=== PATIENT | female | born 1965 | race Caucasian/White ===

== ENCOUNTER 2017-05-20 18:32 | Emergency (ER) | payer BC, MEDICAID ==
[2017-05-20] MEDS ORDERED: ALBUTEROL SULFATE 2.5 MG/0.5 ML VIAL.NEB IH ONE ×2 (18:46→19:13)
[2017-05-20] MEDS ORDERED: NORMAL SALINE 1,000 ML IV ONE ×2 (18:47→20:53)
[2017-05-20 19:17] LABS: Mean Cell Volume 94.8 fl (78-100); Mean Corpuscular Hgb Conc 32.6 g/dl (32-36); Mean Platelet Volume 10.7 fl (6.0-9.5); Neutrophil # 7.4 K/mm3 (1.3-6.0); Neutrophil % 72.5 % (42-75.0); Platelet Count 261 K/mm3 (150-450); Red Blood Count 2.52 M/mm3 (4.2-5.4); Red Cell Distribution Width 14.1 % (11.5-14.0); White Blood Count 10.2 K/mm3 (4.0-10.5)
[2017-05-20 19:23] LABS: Hematocrit 23.9 % (37.0-47.0); Hemoglobin 7.8 gm/dL (12.5-16.0)
[2017-05-20 19:36] LABS: ALT 12 U/L (19-67); AST 11 U/L (0-48); Albumin * 2.4 gm/dl (3.4-5.0); Alkaline Phosphatase * 68 U/L (50-170); Anion Gap 13.1 mmol/L (6.8-13.8); BNP * 435 pg/mL (5-150); BUN/Creatinine Ratio 42.3 (9.0-21.6); Bilirubin, Total 0.3 mg/dL (0.0-1.1); Blood Urea Nitrogen 69 mg/dL (3-23); Ca. Corrected For Albumin 10.1 mg/dL (8.4-10.2); Calcium * 9.1 mg/dL (7.9-10.9); Carbon Dioxide 25.7 mmol/L (24-32.6); Chloride 106 mmol/L (97-106); Glucose * 162 mg/dL (70-110); Potassium 4.8 mmol/L (3.4-4.6); Sodium 140 mmol/L (132-142); Total Protein 5.6 gm/dL (6.2-8.2); Troponin I Less than 0.017 ng/ml (0.00-0.10)
--- NOTE | 2017-05-20 20:12 | ERNOTE ---
<Daljit Link - Last Filed: 05/20/17 20:05> Dyspnea - Date Date of Service: 05/20/17 - General Presenting Symptoms: shortness of breath, difficulty of breathing, other - weakness with dark black stools Time Seen by Provider: 05/20/17 18:40 Source: patient Exam Limitations: no limitations - Immun/Allergies/Home Medications Immunizations: IMMUNIZATION HX Immunizations Up to Date Yes History of Influenza Vaccine Yes Hx Pneumococcal Vaccination No Allergies/Adverse Reactions: Allergies No Known Allergies Allergy (Unverified 05/21/17 13:17) Home Medications: HOME MEDICATIONS Insulin Glargine,Hum.rec.anlog [Lantus] 30 units SC HS 05/21/17 [Last Taken Unknown] Insulin Lispro [Humalog] See Protocol SQ AC 05/21/17 [Last Taken Unknown] - History of Present Illness Severity: moderate Initiating event: Reports: upper resp illness Frequency of episodes: Reports: no prior episodes Modifying Factors - (Improves): Reports: rest Modifying Factors (Worsens): Reports: activity Associated Symptoms-Dyspnea: Reports: palpitations, dizziness, lightheadedness, weakness Review of Systems - Narrative Narrative: unremarkable - Review of Systems Constitutional: Present: See HPI, weakness, fatigue, malaise EYE: Present: no symptoms reported ENT: Present: no symptoms reported Respiratory: Present: shortness of breath, cough, wheezing Cardiology: Present: no symptoms reported Gastrointestinal/Abdominal: Present: nausea, vomiting, diarrhea, other - dark stools today Genitourinary: Present: no symptoms reported - Narrative Narrative: unremarkable - Patient's Past Medical History Patient History - Medical: Diabetes Type 1, Hypothyroidism Patient History - Cardiac/Respiratory: Myocardial Infarction Patient History - Cancer: No Hx of Cancer Patient History - Surgical Procedures: No surgical history, Cardiac stent Patient History - Other: None - Family History Family History:: no untoward family reactions to anesthesia, no familial bleeding tendencies, no family history of clotting disorders, no family history of premature - Social History Living Situations: home Abuse History: No History of abuse Psych History: No pertinent hx Does anyone smoke in the home?: Yes Smoking Status: Current every day smoker Have you smoked in the past 12 months: No Do you dip or chew tobacco: No Patient requests Smoking Cessation Consult: No Initiate information on Smoking Cessation: No Alcohol Use: occasionally Drug Use: none - Immunizations Immunizations Up to Date: Yes Hx Pneumococcal Vaccination: No History of Influenza Vaccine: Yes Physical Exam - Physical Exam General Appearance: Present: mild distress, anxious Head Exam: Present: normal inspection, no evidence of injury Eye Exam: Normal inspection: bilateral, PERRL: bilateral, EOMI: bilateral Ears, Nose, Throat: Present: normal ENT inspection Neck: Present: normal inspection, nontender Respiratory: Present: no respiratory distress, normal breath sounds, no accessory muscle use, chest nontender, lungs clear Cardiovascular/Chest: Present: regular rate, rhythm, no murmur, normal peripheral pulses Peripheral Pulses: N=norm/S=strong/W=weak/B=bound/A=absent: Carotid (R): Normal , Carotid (L): Normal, Radial (R): Normal, Radial (L): Normal, Femoral (R): Normal, Femoral (L): Normal, Dorsalis-pedis (R): Normal, Dorsalis-pedis (L): Normal ED Progress - Date and Time Seen: Date and Time: 05/20/17 20:10 condiiton unchanged - Results and Orders Patient's Lab Results:: I have reviewed the patient's lab results. - Vital Signs Patient's Vital Signs:: I have reviewed the patient's vital signs. Vital Signs: Vital Signs 05/20/17 05/20/17 18:35 19:17 Temperature 36.4 C L Pulse Rate 88 87 Respiratory 20 17 Rate Blood Pressure 103/61 O2 Sat by Pulse 100 97 Oximetry - EKG EKG: NSR EKG read: Interp. by me - X-Ray X-Ray #1 X-Ray: chest - no acute disease Interpretation: Interp. by me - Progress/Reassessment Chief Complaint: Dyspnea Progress:: Unchanged Departure Clinical Impression: Anemia due to GI blood loss - Departure Disposition: Against medical advice Condition: Fair Instructions: Gastrointestinal Bleeding, [id number] Print Language: [place] Additional Instructions: Return to the ED at any time if you feel worse or not able to function at home. Referrals: Yulisa Arshad DO [Primary Care Provider] - <Keegan Goss - Last Filed: 05/22/17 06:52> Dyspnea - Immun/Allergies/Home Medications Immunizations: IMMUNIZATION HX Immunizations Up to Date Yes History of Influenza Vaccine Yes Hx Pneumococcal Vaccination No ED Progress - Vital Signs Vital Signs: Vital Signs 05/20/17 05/20/17 18:35 19:17 Temperature 36.4 C L Pulse Rate 88 87 Respiratory 20 17 Rate Blood Pressure 103/61 O2 Sat by Pulse 100 97 Oximetry - Progress/Reassessment Progress Note-Subjective: 05/20/17 20:40 Care the patient was assumed at the change of shift. 05/20/17 20:51 52 year old that noted this morning to have an elevated blood sugar that was in the high 400s. [place] very wobbly when she stood this morning. As per the son she seems to have been short of breath for the last few days, however the patient experienced it with exertion this afternoon. Denies any chest pain, shortness of breath at rest, fevers, chills, N/V, but has had melanotic diarrhea today. There have been 2-3 days of typical diarrhea. Denies any history of abdominal pain, colon cancer, ulcers, however has had diverticulitis. The son has also noticed that she has appeared pale. 05/20/17 20:53 05/20/17 22:10 We attempted on 2 different occasions to have patient stand, she had a great deal of difficulty. Standing she became pale, dazed and was unable to maintain her posture. The patient refuses to be admitted due to the costs that she would occur and also notes that she has a large pill due to greater [facility], [place]. It was this physician's opinion that she would not do well at home and this was discussed with the patient. Cysts on going home and will have relatives help her. I warned that she may incur syncope, shortness of breath, and injure herself due to falling. We will have her sign out AMA for the admission. There were no complaints of chest or back pain. 05/20/17 22:12
[2017-05-20] MEDS ORDERED: DIATRIZOATE MEGLUMINE, SODIUM 30 ML BTL ONE (20:39)
[2017-05-20] MEDS: DIATRIZOATE MEGLUMINE, SODIUM 30 ML BTL PO ONE ×2 (20:42→21:08)
[2017-05-20 21:20] LABS: Hematocrit 22.7 % (37.0-47.0); Hemoglobin 7.4 gm/dL (12.5-16.0)
[2017-05-20 21:50] LABS: Urine Bilirubin Negative (NEGATIVE); Urine Blood Negative /ul (NEGATIVE); Urine Ketone Negative (NEGATIVE); Urine Protein Negative (NEGATIVE); Urine Specific Gravity 1.015 SP.GR. (1.005-1.010); Urine Urobilinogen Normal (NORMAL); Urine pH 5.5 pH (5.0-7.0)
[2017-05-20 22:01] LABS: Urine Appearance Slightly Cloudy; Urine Bacteria 4+; Urine Color Yellow; Urine Nitrite Positive (NEGATIVE); Urine RBC None Seen /hpf (0-5)
[2017-05-20 23:07] VITALS: BP 121/70
== END 2017-05-20 22:30 | disposition left against medical advice (07) ==
LOC: ER 18:32
DX: D50.0 Iron deficiency anemia secondary to blood loss (chronic) (principal); E10.9 Type 1 diabetes mellitus without complications; E03.9 Hypothyroidism, unspecified; I25.2 Old myocardial infarction; F17.210 Nicotine dependence, cigarettes, uncomplicated; Z95.5 Presence of coronary angioplasty implant and graft; Z79.4 Long term (current) use of insulin; Z91.19 Patient's noncompliance with other medical treatment and regimen

== ENCOUNTER 2017-05-21 13:00 | Emergency (ER) | payer BC, MEDICAID ==
--- NOTE | 2017-05-21 14:39 | ERNOTE ---
GI Bleeding/Rectal Pain ER Presenting Symptoms: dark/tarry stools Time Seen by Provider: 05/21/17 14:16 Source: patient Exam Limitations: no limitations Immunizations: IMMUNIZATION HX Immunizations Up to Date Yes History of Influenza Vaccine Yes Hx Pneumococcal Vaccination No Allergies/Adverse Reactions: Allergies No Known Allergies Allergy (Unverified 05/21/17 13:17) Home Medications: HOME MEDICATIONS Insulin Glargine,Hum.rec.anlog [Lantus] 30 units SC HS 05/21/17 [Last Taken Unknown] Insulin Lispro [Humalog] See Protocol SQ AC 05/21/17 [Last Taken Unknown] Narrative: Patient was seen yesterday initially for shortness of breath, but is seems that the main focus was GI bleeding. Patient had three black stools yesterday ( diarrhea) one bloody today. Her Hb was 7.4 yesterday, she refused admission but went home AMA though she had difficulty standing and walking (normal orthostatic vitals) She is coming today as she had one more episode of bloody diarrhea, denies any abdominal pain, nausea, no vomiting Timing: intermittent Nausea/Vomiting: Present: none Abdominal Pain: Present: none Rectal Bleeding: Present: bloody diarrhea Associated Symptoms: Reports: black stools, light headedness, diarrhea Prior Treament: Reports: recently seen Review of Systems - Review of Systems Constitutional: Present: recent illness, weakness, malaise. Absent: fever Respiratory: Present: cough. Absent: shortness of breath Cardiology: Absent: chest pain Gastrointestinal/Abdominal: Present: See HPI, nausea, diarrhea. Absent: vomiting, abdominal pain Genitourinary: Present: no symptoms reported Musculoskeletal: Absent: back pain Skin: Absent: rash Neurological: Absent: headache, weakness, numbness - Patient's Past Medical History Patient History - Medical: Anxiety, Diabetes Type 1, Depression, Hypothyroidism Patient History - Cardiac/Respiratory: Asthma Patient History - Cancer: No Hx of Cancer Patient History - Surgical Procedures: Other Patient History - Other: None - Social History Living Situations: home Abuse History: No History of abuse Psych History: Hx of Anxiety, Hx of Depression Smoking Status: Current every day smoker Have you smoked in the past 12 months: Yes Do you dip or chew tobacco: No Alcohol Use: sober Drug Use: none - Immunizations Immunizations Up to Date: Yes Hx Pneumococcal Vaccination: No History of Influenza Vaccine: Yes Physical Exam - Physical Exam General Appearance: Present: wd/wn, alert, no apparent distress, obese Eye Exam: Normal inspection: bilateral Ears, Nose, Throat: Present: normal pharynx Respiratory: Present: no respiratory distress, normal breath sounds, lungs clear Cardiovascular/Chest: Present: regular rate, rhythm, no murmur Gastrointestinal/Abdominal: Present: normal bowel sounds, nondistended, soft, tenderness - epigastric mild Neurological Exam: Present: alert, oriented, normal mood/affect Skin Exam: Present: normal color, warm/dry ED Progress - Results and Orders Patient's Lab Results:: I have reviewed the patient's lab results. - Vital Signs Patient's Vital Signs:: I have reviewed the patient's vital signs. Vital Signs: Vital Signs 05/21/17 05/21/17 05/21/17 13:07 13:17 13:47 Temperature 36.4 C L 36.4 C L Pulse Rate 85 85 88 Respiratory 18 18 Rate Blood Pressure 118/62 118/62 O2 Sat by Pulse 100 100 Oximetry - EKG EKG: NSR, other - frequent PVCs, Q in inferior leads, not changed from yesterday EKG read: Interp. by me - X-Ray X-Ray #1 X-Ray: abdomen - normal bowel gas pattern Interpretation: Interp. by me - Progress/Reassessment Chief Complaint: GI Bleed Progress Note-Subjective: 05/21/17 15:31 discussed test results, no significant drop in H/H, normal orthostatic vitals Departure Clinical Impression: Anemia due to GI blood loss, Anxiety Gastritis Qualifiers: Gastritis type: unspecified gastritis Chronicity: acute Gastritis bleeding: presence of bleeding unspecified Qualified Code(s): K29.00 - Acute gastritis without bleeding - Departure Disposition: Home self-care Condition: Stable Instructions: Gastrointestinal Bleeding, [id number] Additional Instructions: take over the counter prilosec or protonix (double the over the counter dose0 call your doctor in the morning for a follow up appointment Referrals: Yulisa Arshad DO [Non Staff Physicians] -
[2017-05-21 14:50] LABS: Mean Cell Volume 94.8 fl (78-100); Mean Corpuscular Hemoglobin 31.3 pg (27-31); Mean Platelet Volume 10.6 fl (6.0-9.5); Neutrophil # 8.2 K/mm3 (1.3-6.0); Platelet Count 260 K/mm3 (150-450); Red Blood Count 2.33 M/mm3 (4.2-5.4); Red Cell Distribution Width 14.3 % (11.5-14.0); White Blood Count 10.6 K/mm3 (4.0-10.5)
[2017-05-21 15:01] LABS: Hematocrit 22.1 % (37.0-47.0); Hemoglobin 7.3 gm/dL (12.5-16.0)
[2017-05-21 15:04] LABS: Albumin * 2.6 gm/dl (3.4-5.0); Anion Gap 14.1 mmol/L (6.8-13.8); BUN/Creatinine Ratio 34.8 (9.0-21.6); Bilirubin, Total 0.4 mg/dL (0.0-1.1); Ca. Corrected For Albumin 10.3 mg/dL (8.4-10.2); Calcium * 9.5 mg/dL (7.9-10.9); Carbon Dioxide 24.9 mmol/L (24-32.6); Total Protein 5.7 gm/dL (6.2-8.2)
[2017-05-21] MEDS ORDERED: PANTOPRAZOLE SODIUM 40 MG TABLET.EC PO ONE (15:32)
[2017-05-21] MEDS ORDERED: PANTOPRAZOLE SODIUM 40 MG TABLET.EC ONE (15:37)
[2017-05-21 16:18] VITALS: BP 126/62
== END 2017-05-21 15:45 | disposition home or self-care (01) ==
LOC: ER 13:00
DX: D50.0 Iron deficiency anemia secondary to blood loss (chronic) (principal); K29.70 Gastritis, unspecified, without bleeding; F41.9 Anxiety disorder, unspecified; E10.9 Type 1 diabetes mellitus without complications; Z79.4 Long term (current) use of insulin; F17.200 Nicotine dependence, unspecified, uncomplicated